=== PATIENT | female | born 1965 | race Caucasian/White ===

== ENCOUNTER 2025-03-03 15:54 | Emergency (ER) | payer OTHER, SELFPAY ==
--- NOTE | 2025-03-03 15:55 | ED_ITS ---
HPI - URI/Sore Throat General Chief Complaint: Upper Respiratory Infection Stated Complaint: Sinus Infection Time Seen by Provider: 03/03/25 15:55 Source: patient Mode of arrival: ambulatory Limitations: no limitations History of Present Illness HPI Narrative: Patient is a 59-year-old female who presents with 1 month of sinus congestion, sinus pressure, and cough. Cough is productive with green mucus and interfering with sleep. Reports history of seasonal allergies, chronic sinusitis it with history of sinus surgery, and asthma. She reports being out of her Symbicort and albuterol inhaler. Reports she would like a new PCP. Patient has tried Mucinex and Lyndsey and with minimal relief. Denies any fever, chills, nausea, vomiting, diarrhea. Related Data Home Medications ?Medication ?Instructions ?Recorded ?Confirmed ?Last Taken ?Type budesonide-formoterol HFA 160 2 puff inhalation Q12H 07/07/21 Unknown History mcg-4.5 mcg/actuation aerosol inhaler (Symbicort) montelukast 10 mg tablet 10 mg PO DAILY 07/07/21 Unknown History (Singulair) Allergies Allergy/AdvReac Type Severity Reaction Status Date / Time No Known Allergies Allergy Unverified 03/03/25 16:15 Review of Systems Review of Systems: All systems reviewed & are unremarkable except as noted in HPI and below Constitutional: Constitutional: Denies chills, Denies fatigue, Denies fever(s), Denies headache(s), Denies malaise and Denies weakness Eyes: Eyes: Denies blurry vision, Denies itchy eyes and Denies loss of vision ENT: Denies otalgia, Denies headache(s), Reports nasal congestion, Reports sinus pain, Reports sinus pressure and Denies sore throat Cardiovascular: Cardiovascular: Denies chest pain, Denies irregular heart rhythm and Denies dyspnea Respiratory: Respiratory: Reports cough and Denies dyspnea Gastrointestinal: Gastrointestinal: Denies abdominal pain, Denies diarrhea, Denies nausea and Denies vomiting Musculoskeletal: Musculoskeletal: Denies back pain, Denies myalgias and Denies arthralgias Integumentary/Breasts: Skin/Breast: Denies pruritus and Denies rash Neurologic: Denies headache(s), Denies loss of vision and Denies weakness Psychiatric: Psychiatric: Reports no additional psychiatric complaints Endocrine: Endocrine: Denies fatigue Allergic/Immunologic: Allergic/Immunologic: Denies itchy eyes PMFSH Social History Social History Smoking status: Never smoker Alcohol intake: never Substance use: never Comments At time of signature, agree with nursing past medical, surgical, social and family history. There is no relevant family history pertinent to the presenting complaint. Exam Const: General: cooperative, healthy appearing, comfortable, no acute distress and well nourished Nutritional Appearance: well nourished Orientation/consciousness: patient oriented x3 Limitations: no limitations HENMT: Head: normal to inspection, normocephalic and atraumatic Ears: hearing grossly normal bilaterally, external ears normal, TM's normal bilaterally, EAC's normal and no periauricular adenopathy Face/Nose/Sinus: Normal external nose present, Abnormal mucous membranes and turbinates present erythematous bilateral and diffuse, normal facial exam, face symmetric and Facial tenderness on exam of face and sinuses Face and sinus: normal facial exam, face symmetric and sinus tenderness frontal and maxillary Mouth: Yes Normal oral and palatal mucosa present, Yes lip normal, Yes tongue normal, Yes Normal salivary glands and ducts present, Yes oropharynx normal and Yes moist mucous membranes Teeth and gingiva: dentition normal Throat: posterior oropharynx normal, tonsils normal, uvula midline and postnasal drainage Eyes: General: appearance normal, both eyes and all related structures Alignment and Position: alignment normal and position normal Periorbital: periorbital findings normal Eyelids: eyelids normal Pupils: Equal, round and reactive pupils present Neck: Neck: normal visual inspection, full ROM, no lymphadenopathy and supple Chest: Chest palpation & inspection: normal inspection of the chest and normal palpation of entire chest wall Resp: Effort & Inspection: normal respiratory effort, able to speak in complete sentences and Actively coughing productive Auscultation: no crackles, no rales, no rhonchi and wheezes scattered wheezes and throughout Cardio: Rate: regular rate Rhythm: regular rhythm Heart sounds: S1 normal heart sound present and S2 normal heart sound present GI: Inspection: normal to inspection Skin: General skin exam: normal color and no rashes or lesions noted Neuro: General: patient oriented x3 and moves all extremities Cranial nerves: Yes Equal, round and reactive pupils present Speech: normal speech Gait exam (Neuro): Normal gait present Extrem: General: normal to inspection, full ROM and no edema Psych: Appearance: grossly normal and well kempt Mental Status: mental status grossly normal Speech and movement: Normal speech and movement present Affect: normal affect Attitude: cooperative Thought process: Normal thought process present Course Course Emergency Course: Discharge instructions reviewed with patient, as well as provided in writing per nursing staff. The instructions also include specific and strict return/GO TO THE ER as well as f/u information. All questions have been answered, and the patient deny any further questions with discharge and discharge plan. Portions of this record may have been created with voice recognition software Level of Care: Express Care Visit Vital Signs Vital signs: Vital Signs Temperature 36.9 C 03/03/25 16:06 Pulse Rate 93 03/03/25 16:06 Respiratory Rate 16 03/03/25 16:06 Blood Pressure 153/79 H 03/03/25 16:06 Pulse Oximetry 97 03/03/25 16:06 Oxygen Delivery Room Air 03/03/25 16:06 Temperature 36.9 C 03/03/25 16:06 Pulse Rate 93 03/03/25 16:06 Respiratory Rate 16 03/03/25 16:06 Blood Pressure 153/79 H 03/03/25 16:06 Pulse Oximetry 97 03/03/25 16:06 Oxygen Delivery Room Air 03/03/25 16:06 Reviewed MDM - URI/Sore Throat MDM Narrative Medical decision making narrative: Patient requesting new PCP and refills on some for an albuterol inhaler. Pt well hydrated appearing, in no respiratory distress, hemodynamically stable. Recommend supportive care. The patient is stable at time of discharge the clinical impression was discussed and the patient was given the opportunity to ask questions, which were addressed as completely as possible given the information available at present. Anticipatory guidance and return to care precautions were discussed and the importance of primary care follow-up was stressed and encouraged. The patient voiced understanding of the plan, indications to return, and the need for follow-up. Exam findings show no acute concerns or changes Patient is appropriate for outpatient treatment and follow-up. Differential diagnosis considered: Solano virus, strep pharyngitis, allergic rhinitis, upper respiratory tract infection, sinusitis, rhinosinusitis, nasopharyngitis. viral pharyngitis, otitis media, otitis externa, otitis effusion, foreign body, cerumen impaction, viral syndrome, and influenza.? Medical Records Attestation: I reviewed the patient's medical records. Discharge Plan Discharge Clinical Impression: Bronchitis Sinusitis Qualifiers: Sinusitis location: maxillary Chronicity: acute Recurrence: non-recurrent Qualified Code(s): J01.00 - Acute maxillary sinusitis, unspecified Patient Disposition: Home Condition: Stable Instructions: Sinusitis (ED), Acute Bronchitis (ED) Additional Instructions: Take antibiotic as prescribed. Take steroids in the morning with food. Use Tessalon Perles as needed for cough. Use inhaler with spacer as needed. Other symptomatic treatments include: -Alternate Tylenol and Motrin per package directions for fever or pain: Tylenol 650-1000mg by mouth every 4-6 hours. Do not exceed 4000mg in 24 hours. Advil (Ibuprofen) 600 mg by mouth every 6 hours. Do not exceed 2400mg in 24 hours. 8 AM: Tylenol 11 AM: Ibuprofen 2 PM: Tylenol 5 PM: Ibuprofen 8 PM: Tylenol 11 PM: Ibuprofen 2 AM: Tylenol 5 AM: Ibuprofen -Antihistamine medication such as Benadryl at night and Zyrtec/Claritin/Lyndsey during the day can help improve symptoms. -Use Flonase twice a day for 5 days then daily to help reduce the inflammation and dry up your sinuses. -You can also use Sudafed or Mucinex. Be sure to drink plenty of water with these medications at least 8 ounces with every dose and it is important to drink 8 to 10 glasses of water per day. Water is a natural decongestant -Eat and drink things that are easy to swallow, like tea or soup, or popsicles. -Oral rinses such as: Salt water gargles and/or may use topical anesthetic (eg. Chloraseptic spray) or lozenges to relieve dryness or throat pain). -Frequent hand washing or hand manager eligibility is one of the best ways to prevent spread of infection. -Using a vaporizer or humidifier at night will also help thin secretions and help with coughing up phlegm. Call your Primary Care Doctor and make a follow-up appointment in 3 days. If your cough worsens, you develop a fever greater than 103, you develop shaking chills, a fast heartbeat, trouble breathing and/or feel you are are breathing much faster than usual, call your Primary Care Doctor or go to the ER. Your blood pressure was elevated above 120/80 today at Urgent Care. This puts you above the threshold for follow up visit with a primary care provider. High blood pressure does not usually cause any symptoms, however it may lead to kidney failure, stroke, heart disease just to name a few if untreated . Many people are anxious when seeing a provider or nurse. As a result, you are not diagnosed with hypertension at this time unless your blood pressure is persi stently high at two office visits at least one week apart. Some things that can help lower blood pressure are lifestyle modifications, such as light exercise, decreased salt in diet, and weight loss. It is important to follow up with a PCP about this within 1 week. Patient Language: Malian Prescriptions: New benzonatate 100 mg capsule 100 mg PO BID PRN (Reason: cough) Qty: 14 0RF (DME) Aerochamber MV Spacer See Rx Instructions .Route Qty: 1 0RF Rx Instructions: As directed doxycycline monohydrate 100 mg tablet 100 mg PO BID 10 Days Qty: 20 0RF albuterol sulfate 90 mcg/actuation HFA aerosol inhaler 2 puff inhalation QID PRN (Reason: shortness of breath or wheezing) Qty: 6.7 0RF budesonide-formoterol [Symbicort] 160-4.5 mcg/actuation HFA aerosol inhaler 1 puff inhalation ONCE Qty: 10.2 0RF prednisone 20 mg tablet 40 mg PO DAILY 5 Days Qty: 10 0RF fluticasone propionate [Flonase Allergy Relief] 50 mcg/actuation spray,suspension 1 spray intranasal DAILY Qty: 16 0RF Rx Instructions: administer into each nostril No Action budesonide-formoterol [Symbicort] 160-4.5 mcg/actuation HFA aerosol inhaler 2 puff inhalation Q12H montelukast [Singulair] 10 mg tablet 10 mg PO DAILY Follow-up/Referrals: Joss Reed MD [Physician] - 3 Days (Establish care) Stand Alone Forms: Work/School Release IP Time of Disposition: 16:33
[2025-03-03 16:06] VITALS: BP 153/79; PULSE 93; RESP 16; TEMP 36.9; O2SAT 97
--- OUTSIDE RECORDS SUMMARY | 2025-03-03 16:33 | XMS_ITS | Data Portability ---
Author Organization [facility] Address [address] [place] [address] Care Team Providers Care Master Fisher Name Role Phone KRYSTAL LUND Primary Care Provider Unavailabl e Assessment No assessment recorded. Plan of Treatment Reminders Order Date Submit Date Provider Last Modified By Organization Details Last Modified Time Details Appointments None recorded. Lab None recorded. Referral gastroente rologist referral - GI MD 2017 018 ARAMIS Not available 9 05:00:42 Procedures None recorded. Surgeries None recorded. Imaging None recorded. Medication Orders Augmentin 875 mg-125 mg tablet 2017 018 [facility]27268, [address] [place], [place], [id number], 8 12:57:00 montelukas t 10 mg tablet 2017 018 [facility] #87004, [address] [place], [place], [id number], 8 12:57:23 azithromyc in 250 mg tablet 2017 018 [facility] #87359, [address] [place], [place], [id number], 8 12:42:22 Medrol (Barrera) 4 mg tablets in a dose pack 2017 018 [facility] #30227, [address] [place], [place], [id number], 8 12:42:30 triamcinol one acetonide 40 mg/mL suspension for injection 2017 018 [email or web address] Not available 8 12:42:25 montelukas t 10 mg tablet 2016 017 [facility] #72627, [address] [place], [place], [id number], 7 12:41:42 Dulera 100 mcg-5 mcg/actuat ion HFA aerosol inhaler 2016 017 [facility] #19467, [address] [facility], [place], [place], [id number], 7 12:41:39 Kenalog 40 mg/mL suspension for injection 2016 017 [email or web address] Not available 8 12:42:25 cefuroxime axetil 500 mg tablet 2016 017 [facility] #10657, [address] [facility], [place], [place], [id number], 8 12:55:43 fluticason e propionate 50 mcg/actuat ion nasal spray,susp ension 2016 017 [facility] [address] [place], [place], [id number], 7 12:45:43 Tubersol 5 tub. unit/0.1 mL intraderma l injection solution 2016 017 [facility], [address] [place], [place], [id number], 7 14:56:29 Patient TargetsNo targets recorded. 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 Medical Equipment None Reported. Allergies No known drug allergies Medications Name Sig Start Date Stop Date Status Note LastModified by Organization Details LastModified Time Augmentin 875 mg-125 mg tablet Take 1 tablet twice a day by oral route. 2017 active Not Available Not Available Not Avai lable prednison e 10 mg tablet 01/20 completed Not Available Not Available Not Available cefuroxim e axetil 250 mg tablet 01/20 completed Not Available Not Available Not Available azithromy iris 250 mg tablet TAKE 2 TABLETS (500 MG) BY ORAL ROUTE ONCE DAILY FOR 1 DAY THEN 1 TABLET (250 MG) BY ORAL ROUTE ONCE DAILY FOR 4 DAYS 02/23 completed Not Available Not Available Not Available Tubersol 5 tub. unit/0.1 mL intraderm al injection solution administ er 0.1 ml today 09/07 completed informed pt to RTO 48-72 hours Not Available Not Available Not Available triamcino lone acetonide 40 mg/mL suspensio n for injection Take 1 mL by injectio n route as directed . 02/23 completed Not Available Not Available Not Available tobramyci n 0.3 % eye drops 01/20 completed Not Available Not Available Not Available monteluka st 10 mg tablet Take 1 tablet every day by oral route at bedtime. active Not Available Not Available No t Available cefuroxim e axetil 500 mg tablet Take 1 tablet twice a day by oral route for 10 days. 02/08 completed Not Available Not Available Not Available methylpre dnisolone 4 mg tablets in a dose pack Take 1 dose pk by oral route as directed . 02/23 completed Not Available Not Available Not Available fluticaso ne propionat e 50 mcg/actua tion nasal spray,christiano pension SHAKE LIQUID AND USE 2 SPRAYS IN EACH NOSTRIL EVERY DAY active Not Available Not Available No t Available Symbicort 160 mcg-4.5 mcg/actua tion HFA aerosol inhaler Inhale 2 puffs twice a day by inhalati on route for 30 days. 09/06 completed Not Available Not Available Not Available Dulera 100 mcg-5 mcg/actua tion HFA aerosol inhaler Inhale 2 puffs twice a day by inhalati on route. 2016 active Not Available Not Available Not Avai lable Lyndsey Allergy 180 mg tablet Take 1 tablet every day by oral route. 02/23 completed Not Available Not Available Not Available Vitals Date Recorded Body height Body weight Body mass index (BMI) Body temperature Oxygen saturation Oxygen saturation in Arterial blood by Pulse oximetry Heart rate Systolic blood pressure Diastolic blood pressure Provider Name and Address Organization Details Last Updated DateTime 7 168.91 cm 89585.8 4 g 24.2 kg/m2 98.6 [degF] 97 % 97 % 65 /min 130 mm[Hg] 80 mm[Hg] Mari Nixon CMA [facility] 7 14:40:53 Date Recorded Body height Body mass index (BMI) Body weight Oxygen saturation Oxygen saturation in Arterial blood by Pulse oximetry Heart rate Body temperature Systolic blood pressure Diastolic blood pressure Provider Name and Address Organization Details Last Updated DateTime 8 168.91 cm 27.5 kg/m2 18268.1 8 g 96 % 96 % 65 /min 98.7 [degF] 140 mm[Hg] 90 mm[Hg] Mari Nixon C[facility] 8 12:52:19 Date Recorded Body height Body mass index (BMI) Body weight Oxygen saturation Oxygen saturation in Arterial blood by Pulse oximetry Heart rate Respiratory rate Body temperature Systolic blood pressure Diastolic blood pressure Provider Name and Address Organization Details Last Updated DateTime 8 168.91 cm 26.9 kg/m2 96055.5 5 g 99 % 99 % 75 /min 12 /min 98.5 [degF] 132 mm[Hg] 90 mm[Hg] PATTIE Rodriguez [facility] 8 12:45:37 Date Recorded Body height Body mass index (BMI) Body weight Oxygen saturation Oxygen saturation in Arterial blood by Pulse oximetry Heart rate Body temperature Systolic blood pressure Diastolic blood pressure Provider Name and Address Organization Details Last Updated DateTime 7 168.91 cm 25 kg/m2 01725 g 95 % 95 % 65 /min 98.2 [degF] 122 mm[Hg] 80 mm[Hg] Mari Nixon CMA [facility] 7 12:34:28 Social History Question Answer Notes LastModified by Organizat ion Details LastModified Time Tobacco Smoking Status Never Smoker Mari Nixon CMA null, [facility] 01/20/2017 14:43:25 What Was The Date Of Your Most Recent Tobacco Screening? 02/23/2018 Information n ot available 04/18/2019 Sex: Unknown Functional Status None recorded. Mental Status None recorded. Family History Relationship Description Onset Age of this Age Resolved Age Notes LastModified by Organization Details LastModified Time Mother Asthma [email or web address] Not available 0 01/20/2017 14:43:52 Mother Hypercholest erolemia thulsema Not available 2016 14:44:30 Father Coronary arterioscler osis thulsema Not available 2016 14:44:04 Father Heart disease thulsema Not available 2016 14:44:14 Father Hypertensive disorder thulsema Not available 2016 14:44:22 Medical History Condition Response Coronary Artery Disease N Other N High Blood Pressure N Atrial Fibrillation N Kidney or Bladder Problems N Thyroid Problems N GI Problems N Depression N COPD N Blood Clots N Skin Problems N Anemia N Heart Attack (IA) N Anxiety Disorder N Diabetes N Muscle, Joint, or Bone Problems N Seizures/Epilepsy N Acid Reflux (GERD) Y Cancer N Stroke N Asthma Y Allergies Y High Cholesterol N Hepatitis N Liver Disease N Headaches N Heart Failure N Osteoporosis N Gynecological HistoryNo gynecological history recorded. Obstetrics History GPAL:G 0 P 0 0 0 0 Immunizations Vaccine Type Date Status Note Provider Nam e and Address Organization Details Recorded Time Tdap 01/20/2017 completed Not Available [facility] 10/12/2019 02:33:29 Past Encounters Encounter ID Performer Location Encounter Start Date Encounter Closed Date Diagnosis/Indication Diagnosis SNOMED-CT Code Diagnosis ICD10 Code Diagnosis Note [id number] KRYSTAL Lund NP [facility] [address] [place] [address] 01/20/2017 14:18:23 01/25/2017 12:17:03 Adult health examination 874767240 Z00.00 Paperwork filled out, will keep until TB results are obtained and documented . Tdap administer ed. TB administer ed, return in 48-72 hours to have results read. F/u annually or sooner if needed. [id number] KRYSTAL Lund NP [facility] [address] [place] [address] 09/06/2017 12:23:33 09/07/2017 16:30:35 Asthma 755781516 J45.909 Reports symbicort is not covered under her insurance. Requesting dulera at this time. Continue singulair daily. Acute sinusitis 87339244 J01.90 Kenalog 40 mg IM this visit. Start oral antibiotic . Flonase, zyrtec prn otc. F/u prn [id number] KRYSTAL Lund NP [facility] [address] [place] [address] 02/08/2018 12:31:23 02/09/2018 09:16:26 Asthma 250742684 J45.909 Continue singulair as directed. Acute sinusitis 56104635 J01.90 Kenalog 40 mg IM this visit. Start oral antibiotic and oral steroids. Flonase, zyrtec prn otc. F/u prn [id number] KRYSTAL Lund NP [facility] [address] [place] [address] 02/23/2018 12:31:50 02/28/2018 09:15:20 Acute sinusitis 53319586 J01.90 Start oral antibiotic . Continue Flonase, zyrtec prn otc. F/u with ENT Screening for malignant neoplasm of colon 843570964 Z12.11 Refer to GI for colonoscop y Health Concerns Section Related Observation LastModified by Organization Detai ls LastModified Time None Recorded Concern Status LastModified by Organization Details LastModified Time None Recorded Advance Directives Directive None Recorded Payers Encounter Date Sequence Insurance Name Policy Number Policy Jaimes Covered Member ID Jaimes Member ID Guarantor Name 01/20/2017 1 *SELF PAY* [facility] 09/06/2017 1 [place] [id number] [facility] [id number] 91 [facility] 02/08/2018 1 [place] [id number] [facility] [id number] 91 [facility] 02/23/2018 1 [place] [id number] [facility] [id number] 91 [facility] Notes Date Note Type Note Provider Name and Address Organization Details Recorded Time 01/20/2017 text/html Patient presents today to establish care and have a pre-employement physical. 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 Denies concerns. KRYSTAL Lund NP Attn: [employer]ing,[address] [place], [address], [facility] 01/20/2017 16:42:06 09/06/2017 text/html Patient presents today for c/o nasal congestion/pressure , post nasal drainage x 2 weeks. Reports having a hx of chronic sinus infections with surgery approximately 7 yrs ago. She is requesting ceftin as an antibiotic at this time. She is doing everything otc. Denies fever, wheezing, SOB KRYSTAL Lund NP Attn: Accounting[address] [place], [address], [facility] 09/07/2017 14:57:59 02/08/2018 text/html Patient presents today for c/o nasal congestion/pressure , post nasal drainage, headache, fatigue x 1.5 weeks. Flonase and lyndsey, mucinex-d prn without relief. KRYSTAL Lund NP Attn: Accounting[address] [facility], [place], [address], [facility] 02/12/2018 14:42:55 02/23/2018 text/html Patient presents today for c/o sinus pressure/congestion , ear pressure/pain x 1 week. She has chronic sinus infections. She now has health insurance and has an upcoming apt with ENT. She as scheduled to have sinus surgery in the past but lost her insurance. Taking flonase, singular and lyndsey daily. Denies fever, chest congestion, wheezing KRYSTAL Lund NP Attn: Accounting[address] , [place], [address], [facility] 02/23/2018 17:11:32 OBGyn Episode No OBEpisode recorded.
--- OUTSIDE RECORDS SUMMARY | 2025-03-03 16:33 | XMS_ITS | Clinical Summary ---
Author Organization [facility] Address [address] [place] [address] Care Team Providers Care Welfare Aide Name Role Phone Cinthia Posadas MD Primary Care Provider [phone] Source Comments [facility],non-owned Affiliates and Associated Physician Practices is amultiple site organization consisting of ambulatory clinics and hospital sitesin [place], [place], [place] and [place]. This disclosure is being madepursuant to the Care Everywhere program and may not contain all information available regarding this patient. Last updated 18.[facility] Allergies No known active allergies Medications * Be aware that medications may not be up to date on this document. Alwaysverify current medications with the patient. Fexofenadine HCl (SAFIA PO) Active Budesonide-Formo terol Fumarate (SYMBICORT IN) Activ e Fluticasone Propionate (FLONASE NA) Active montelukast (SINGULAIR) 10 MG tabletIndication s:Asthma, unspecified asthma severity, unspecified whether complicated, unspecified whether persistent (HCC) Take 1 tablet by mouth once daily 30 tablet 9 Active Additional Information Patient not taking.Reported on 08/29/2020 albuterol HFA (PROVENTIL;MUKESH JACKELINE;PROAIR) 108 (90 Base) MCG/ACT inhalerIndicatio ns:Asthma, unspecified asthma severity, unspecified whether complicated, unspecified whether persistent (HCC) Inhale 2 puffs by mouth every 6 hours as needed 1 Inhaler 0 Active Active Problems No known active problems Social History Tobacco Use Types Packs/Day Years Used Date Smoking Tobacco: Never Smokeless Tobacco: Never Comments No Sex and Gender Information Value Date Recorded Sex Assigned at Not on file Legal Sex Female 10:24 AM CDT Gender Identity Not on file Sexual Orientation Not on file Last Filed Vital Signs Vital Sign Reading Time Taken Comments Blood Pressure 141/88 02/22/2021 10:04 AM CDT Pulse 80 02/22/2021 10:04 AM CDT Temperature 36.6 C (97.8 F) 02/22/2021 10:04 AM CDT Respiratory Rate 18 02/22/2021 10:04 AM CDT Oxygen Saturation 96% 02/22/2021 10:04 AM CDT Inhaled Oxygen Concentration - - Weight 77.1 kg (170 lb) 02/22/2021 10:04 AM CDT Height 167.6 cm (5' 6) 02/22/2021 10:04 AM CDT Body Mass Index 27.44 02/22/2021 10:04 AM CDT Plan of Treatment Health Maintenance Due Date Last Done Comments COLOGUARD (AGES 45-75) - COL ON CA SCREENING 1964 COLON MONITORING 1964 COLONOSCOPY - COLON CA SCREENING 1964 CT COLONOGRAPHY - COLON CA SCREENING 1964 Colorectal Cancer Screening 1964 FIT - COLON CA SCREENING 1964 FLEX SIG - COLON CA SCREENING 1964 LIPID TESTING 1964 HIV SCREENING 1979 HEPATITIS C SCREENING 04/24/1982 DTAP/TDAP/TD VACCINES (1 - Tdap) 1983 PNEUMOCOCCAL VACCINE 50+ (1 of 1 - PCV) 2014 ZOSTER VACCINE (1 of 2) 2014 SCREENING FOR DIABETES 08/15/2019 MAMMOGRAM 04/01/2022 04/01/2020 COVID-19 VACCINE (1 - 2023-2 5 season) 2024 DEPRESSION SCREENING 09/25/2024 INFLUENZA VACCINE (Season Ended) 2025 Respiratory Syncytial Virus (RSV) Vaccine Pt: or over 60 yrs (1 - 1-dose 75+ series) 2039 HEPATITIS B VACCINE Aged Out No longe r eligible based on patient's age to complete this topic HIB VACCINE Aged Out No longer eligi ble based on patient's age to complete this topic HPV VACCINE Aged Out No longer eligi ble based on patient's age to complete this topic MENINGOCOCCAL (Group B) VACC INE SHARED DECISION-MAKING Aged Out No longer eligibl e based on patient's age to complete this topic MENINGOCOCCAL GROUPS A/C/Y/W VACCINE Aged Out No longer eligible b ased on patient's age to complete this topic Insurance [facility] Care Teams Welfare Aide Relationship Specialty Start Date End Date Cinthia Posadas MD [facility] [place] [id number] PCP - General Family Medicine 12/30/16
--- OUTSIDE RECORDS SUMMARY | 2025-03-03 16:36 | XMS_ITS | Referral Summary ---
Author Organization [facility] [place] [address] [facility] Address [address] [place] [address] Care Team Providers Care Training Specialist Name Role Phone Sunitha Landeros NP Primary Care Provider [phone] Allergies No known active allergies Medications fluticasone propionate (FLONASE) 50 mcg/actuation nasal spray Administer into affected nostril(s) Active albuterol HFA (PROVENTIL HFA,VENTOLIN HFA,PROAIR HFA) 90 mcg/actuation inhaler Inhale 2 puffs every 6 (six) hours as needed for wheezing 1 each [address] (PROTONIX) 40 mg EC tablet Take 1 tablet (40 mg total) by mouth daily 30 tablet 1 2 Active fexofenadine (SAFIA) 180 mg tablet Take 1 tablet (180 mg total) by mouth daily 30 tablet 1 2 Active methylPREDNISol one (MEDROL DOSEPACK) 4 mg DosepackIndicat ions:Wheezing Take as directed on package. 21 tablet 3 Active budesonide-form oteroL (SYMBICORT) 160-4.5 mcg/actuation inhaler INHALE 2 PUFFS BY MOUTH TWICE DAILY. RINSE MOUTH WITH WATER AFTER USE. DO NOT SWALLOW 10.2 g 3 3 Active montelukast (SINGULAIR) 10 mg tablet TAKE 1 TABLET(10 MG) BY MOUTH EVERY NIGHT 90 tablet 1 4 Active Active Problems Problem Noted Date Diagnosed Date Statin intolerance 02/09/2023 Mixed hyperlipidemia 05/31/2022 Assessment & Plan (05/31/2022 4:11 PM CDT): Discontinue crestor, will start welchol low dose with intention to increase pending cholesterol levels. Advised establishing with [facility] in June to complete annual physical and blood work. BMI 27.0-27.9,adult 06/03/2021 Assessment & Plan (06/14/2021 8:38 AM CDT): Weight/BMI is in healthy range. Continue healthy lifestyle to maintain. Assessment & Plan (06/03/2021 8:56 AM CDT): Weight/BMI is in healthy range. Continue healthy lifestyle to maintain. Herpes zoster without complication 05/27/2021 Assessment & Plan (06/14/2021 10:29 AM CDT): She was encouraged to report to pharmacist her timeline on vaccine and when shingles developed. Per her conversation with Dr. Posadas, she is going to postpone her second dose x 30d. She will f/u in the next 10-14d if symptoms have not resolved. Assessment & Plan (06/04/2021 12:11 PM CDT): Dc norco. Advised increasing motrin to 800mg tid x 7 days[address] Offered ultram in place of norco, she declines at this time. Discussed adding neurontin if symptoms are not improving. Assessment & Plan (05/27/2021 2:45 PM CDT): Will start on prn norco, advised not driving for 6h after taking norco Will start on valacyclovir RUQ abdominal pain 05/27/2021 Assessment & Plan (05/27/2021 2:44 PM CDT): Us abd, labs, will notify of results as available Advised reporting to er if worsening Gastroesophageal reflux disease 03/17/2021 Assessment & Plan (05/31/2022 4:11 PM CDT): Stable, continue medications the same at this time Assessment & Plan (05/27/2021 2:44 PM CDT): Add prilosec every day, advised bland diet Assessment & Plan (03/17/2021 10:34 AM CDT): Advised decreased spicy/acidic foods Advised attempts at weight loss Advised referral to gi for egd Rectal bleed 03/17/2021 Assessment & Plan (05/20/2021 12:32 PM CDT): Has appt pending with gi that she will keep Assessment & Plan (03/17/2021 10:35 AM CDT): Declines the advised ct abd/pelvis She was advised to keep stools soft She was advised to discontinue her fiber tabs She was advised to use proctocream qid x 5 days Physical exam 03/17/2021 Asthma 09/06/2017 Assessment & Plan (05/31/2022 4:11 PM CDT): Stable, continue medications the same at this time Assessment & Plan (03/17/2021 10:34 AM CDT): Stable on medications, rf as needed Resolved Problems Problem Noted Date Diagnosed Date Resolved Date Congestion of upper respiratory tract 09/15/2021 05/31/2022 Assessment & Plan (09/15/2021 8:09 AM FILTER PRESS PUMPER): Patient to presume positive COVID until results are available and self isolate for 10 days from the onset of sxs. Check COVID test thru [facility] collection site in [place]. If positive, complete quarantine and consider monoclonal antibodies. If negative, treat sxs and observe. Continue current asthma regimen. Hasn't needed an increase in her albuterol use at this point. Treat sxs with Tylenol, Cough/cold medication otc and add VitD 5,000IU daily and Zinc 50mg daily. Monitor sxs and call or go to the ER if has any of the following: --trouble breathing --persistent pain or pressure in the chest --new confusion --inability to wake or stay awake -- bluish lips or face If patient has been in close contact with anyone, they should be notified and instructed to quarantine per CDC guidelines for 14 days after last exposure to the positive COVID patient and monitor closely for symptoms of COVID. If they appear they should be tested. Close contact includes: --You were within 6 feet of someone who has COVID-19 for a total of 15 minutes or more --You provided care at home to someone who is sick with COVID-19 --You had direct physical contact with the person (hugged or kissed them) --You shared eating or drinking utensils --They sneezed, coughed, or somehow got respiratory droplets on you Additional Steps to avoid exposure/spread include: Avoid crowded places where close contact with others may occur, such as shopping centers, movie theaters, dormitories, or stadiums. Avoid transit where close contact with others may occur, such as planes, trains, and buses. Maintain a distance of approximately 6 feet from other people whenever possible (spacing out if you are in a line, leaving 2 seats in between others at a waiting room when possible). Wash your hands with soap and water often. If needed, use a hand friction saw operator that contains at least 60% alcohol. Clean and disinfect frequently touched surfaces such as tables, doorknobs, countertops, etc daily. Avoid touching your eyes, nose, and mouth when possible. BMI 28.0-28.9,adult 03/17/2021 05/27/20 Assessment & Plan (05/20/2021 10:38 AM CDT): Weight/BMI is in healthy range. Continue healthy lifestyle to maintain. Assessment & Plan (03/17/2021 9:06 AM CDT): Weight/BMI is in healthy range. Continue healthy lifestyle to maintain. Colon cancer screening 03/17/202105/31 Assessment & Plan (03/17/2021 10:34 AM CDT): Will refer to gi for further evaluation Elevated BP without diagnosis of hypertension 03/17/2005/31/2022 Assessment & Plan (06/14/2021 10:28 AM CDT): She will monitor bp at home and report to office if running >130/90 Assessment & Plan (05/27/2021 2:44 PM CDT): Discussed monitoring, likely secondary to not sleeping and pain Assessment & Plan (05/20/2021 12:32 PM CDT): She will continue to monitor bp with goal 120-130/80. Will call if running higher for medication management. Assessment & Plan (03/17/2021 10:35 AM CDT): She will monitor at home with goal 130/80. We discussed adding medication if 130/90 or greater. Immunizations Immunization Administration Dates Next Due Influenza, Unspecified 02/09/2023(Deferr ed: Patient Refused),10/26/2021(Deferred: Patient Refused),07/19/2021(Deferred: Patient Refused) PPD TEST 07/19/2021 Tdap 01/20/2017 Social History Tobacco Use Types Packs/Day Years Used Date Smoking Tobacco: Never Smokeless Tobacco: Never Tobacco Cessation:Counseling Given: Not Answered PHQ-2 Answer Date Recorded PHQ-2 Total Score (If total score is 3 or more points, staff should administer the PHQ-9) 0 02/09/2023 Personal Safety Answer Date Recorded Getting School Help Needed Not on file 09/18 Comments No Sex and Gender Information Value Date Recorded Sex Assigned at Not on file Legal Sex Female 7:31 PM FILTER PRESS PUMPER Gender Identity Not on file Sexual Orientation Not on file Last Filed Vital Signs Vital Sign Reading Time Taken Comments Blood Pressure 142/90 01/25/2023 1:06 PM CDT man ual Pulse 68 01/25/2023 12:32 PM CDT Temperature 36.9 C (98.4 F) 02/09/2023 1:30 PM CDT Respiratory Rate 18 01/25/2023 12:32 PM CDT Oxygen Saturation 99% 02/09/2023 1:30 PM CDT Inhaled Oxygen Concentration - - Weight 74.8 kg (165 lb) 02/09/2023 1:30 PM CDT Height 166.4 cm (5' 5.5) 02/09/2023 1:30 PM CDT Body Mass Index 27.04 02/09/2023 1:30 PM CDT Plan of Treatment Not on file Procedures Procedure Name Priority Date/Time Associated Diagnosis Comments SCREENING MAMMOGRAM BILATERAL W WERNER Schedule Routine, Read Routine (OP Routine) 06/12/2023 1:10 PM CDT Screening mammogram, encounter for from Last 3 Months or Most Recently Relevant to Health Maintenance Results * Screening Mammogram Bilateral W Werner (06/12/2023 1:10 PM CDT) Anatomical Region Laterality Modality Breast Bilateral Mammography Impressions 06/12/2023 1:25 PM CDT BI-RADS ATLAS category (overall): 2 - Benign There is no mammographic evidence of malignancy. A 1 year screening mammogram is recommended. The patient has been or will be contacted. We recommend annual screening mammography for women at average risk of breast cancer beginning at age 40, based on guidelines of the [employer] (ACR Practice Parameter for the Performance of Screening and Diagnostic Mammography) and [employer]. For women with and elevated risk of breast cancer, please refer to the ACR Practice Parameter for specific screening recommendations. The patient will be entered into a reminder system with a target due date of 1 year for her next screening exam. Narrative 06/12/2023 1:25 PM CDT Screening Mammogram Bilateral W Werner: 06/12/23 The study was acquired using full field digital technology and interpreted from soft copy. 2D digital mammographic views, as well as 3D digital tomosynthesis were performed in the CC and MLO projections. CLINICAL: Screening mammogram, encounter for No relevant medical history has been documented for this patient. No known family history of breast cancer. COMPARISONS: 12/16/2021 Screening Mammogram Bilateral W Werner 04/01/2020 Screening Mammogram Bilateral W Werner 03/14/2018 Screening Mammogram Bilateral W Werner 05/10/2016 Screening Mammogram Bilateral W Werner BREAST TISSUE: The breasts are almost entirely fatty. FINDINGS: There are unchanged benign microcalcifications in both breasts. Unchanged biopsy marker clips in both breasts. Unchanged benign appearing masses and/or dilated ducts in the subareolar right breast. There is no new suspicious finding in either breast on mammogram. us Self Screening Mammogram IMG MAMMO PROCEDURES Fi nal Result from Last 3 Months or Most Recently Relevant to Health Maintenance Insurance [employer] [place] [id number] Care Teams Training Specialist Relationship Specialty Start Date End Date Sunitha Landeros, [facility] [address] [address] PCP - General Internal Medicine 02/09/23
--- OUTSIDE RECORDS SUMMARY | 2025-03-03 16:36 | XMS_ITS | Clinical Summary ---
Author [place] [facility] [place] [address] [facility] Address [address] [place] [address] Care Team Providers Care Cyanide Furnace Operator Name Role Phone Sunitha Landeros NP Primary Care Provider [phone] Allergies No known active allergies Medications fluticasone [...] increase pending cholesterol levels. Advised establishing with [facility] in June to complete annual physical and [...] 05/31/2022 Assessment & Plan (09/15/2021 8:09 AM LITIGATION COORDINATOR): Patient to presume positive COVID until results are available and self isolate for 10 days from the onset of sxs. Check COVID test thru [facility] collection site in [place]. If positive, complete quarantine and consider monoclonal [...] water often. If needed, use a hand assembler wire group that contains at least 60% alcohol. Clean [...] Patient Refused) PPD TEST 07/19/2021 Tdap 01/20/2017 Surgical History Surgery Date Site/Laterality Comments SINUS SURGERY BREAST BIOPSY Bilateral benign TONSILLECTOMY Medical History Medical History Date Comments GERD (gastroesophageal reflux disease) 2004 Asthma Allergy induced asthma 2004 Family History Medical History Relation Name Comments Heart disease Father [place] Cancer Maternal Grandfather Melvin browne Relation Name Status Comments Father [place] Maternal Grandfather Melvin [place] Mother Alive Social History Tobacco Use Types Packs/Day Years [...] on file Legal Sex Female 7:31 PM LITIGATION COORDINATOR Gender Identity Not on file Sexual Orientation Not on file Obstetrics History Para Term AB IAB SAB Ectopic Multiple Livin g Live Births 4 4 4 Date Outcome GA Total Labor Labor/2nd/3rd Weight Sex Type Anes PTL Sharon A1 A5 Name Clin Term Term Term Term Last Filed Vital Signs Vital Sign Reading [...] 02/09/2023 1:30 PM CDT Plan of Treatment Health Maintenance Due Date Last Done Comments Cervical Cancer Screening 1964 Colon Cancer Screening-Colonoscopy 1964 Hepatitis C Screening 1964 Hepatitis B Screening 1982 Pneumococcal vaccine <65 (1 of 2 - PCV) 1983 Zoster Vaccine (1 of 2) 2014 Depression Screening 02/10/2024 02/09/2023, 06/14/2021, 06/03/2021, Additional history exists Regular Well Visit/Exam 18-64 02/10/2024 02/09/2023 Covid-19 Vaccine (2 - 2023-2 5 season) 2024 05/01/2021 Breast Cancer Screening-Mammogram 06/12/2024 06/12/2023, 12/16/2021, 04/01/2020, Additional history exists Influenza Vaccine (Season Ended) 2025 DTaP/Tdap/Td Vaccine (2 - Td or Tdap) 01/20/2027 01/20/2017 Procedures Procedure Name Priority Date/Time Associated Diagnosis [...] age 40, based on guidelines of the [employer] (ACR Practice Parameter for the Performance of Screening and Diagnostic Mammography) and [employer]. For women [...] Most Recently Relevant to Health Maintenance Insurance [facility] PLUS [facility] PL[facility] Care Teams Cyanide Furnace Operator Relationship Specialty Start Date End Date Sunitha Landeros NP [address] [facility] [address] [place] [address] PCP - General Internal Medicine 02/09/23
== END 2025-03-03 16:38 | disposition home or self-care (01) ==
PROVIDERS: Emergency Provider Nurse Practitioner Family; PCP Nurse Practitioner Family
DX: J40 Bronchitis, not specified as acute or chronic (principal); J01.00 Acute maxillary sinusitis, unspecified; J45.909 Unspecified asthma, uncomplicated
CPT/HCPCS: 99213; G0463